=== PATIENT | female | born 1985 | race American Indian/Alaskan Native ===

== ENCOUNTER 2019-10-11 10:43 | Emergency (ER) | payer SELFPAY ==
--- NOTE | 2019-10-11 12:01 | Emergency Department Report ---
ED General Adult HPI - General Chief complaint: Chest Pain Stated complaint: CP Time Seen by Provider: 10/11/19 11:52 Source: patient Mode of arrival: Ambulatory Limitations: No Limitations - History of Present Illness Initial comments: 33-year-old obese relatively healthy to her knowledge -[place] female presents emergency department complaining of a 2 to 3-week history of episodes of chest pressure followed by tingling in her hands and anxiety. States her initial presentation was August 18 when she was having palpitations which progressed anxiety and reports having had heart rates up to 162 per her health watch. This lasted for about a minute or 2 before slowly resolving since that time she is been having progressively worsening bouts of chest pressure almost every day. No orthopnea does not appear to be reproducible. She reports no fever chills or sweats. No hemoptysis, no hematuria hematemesis, no sputum production, no coughing, no headache, no sore throat, no known contact with the coronavirus. 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 related with the job but reports no known history of anxiety, bipolar, schizophrenia or anxiety nor PTSD Location: chest Radiation: non-radiation Quality: other Consistency: intermittent Improves with: none (Pressure) Worsens with: none Associated Symptoms: denies: confusion, chest pain, cough, diaphoresis, fever/chills, nausea/vomiting, shortness of breath, syncope, weakness Treatments Prior to Arrival: none - Related Data Previous Rx's Medication Instructions Recorded Last Taken Type Famotidine [Pepcid] 10 mg PO BID #30 tablet 06/21/14 Unknown Rx Omeprazole [PriLOSEC] 20 mg PO QDAY #30 capsule. 06/21/14 Unknown Rx Allergies Allergy/AdvReac Type Severity Reaction Status Date / Time No Known Allergies Allergy Verified 06/21/14 04:56 ED Review of Systems ROS: Stated complaint: CP Other details as noted in HPI Comment: All other systems reviewed and negative ED Past Medical Hx - Past Medical History Previous Medical History?: No - Surgical History Past Surgical History?: Yes Additional Surgical History: tummy tuck - Social History Smoking Status: Never Smoker Substance Use Type: None - Medications Home Medications: Home Medications Medication Instructions Recorded Confirmed Last Taken Type Famotidine [Pepcid] 10 mg PO BID #30 tablet 06/21/14 Unknown Rx Omeprazole [PriLOSEC] 20 mg PO QDAY #30 capsule. 06/21/14 Unknown Rx ED Physical Exam - General Limitations: No Limitations General appearance: alert, in no apparent distress - Head Head exam: Present: atraumatic, normocephalic - Eye Eye exam: Present: normal appearance, PERRL, EOMI Pupils: Present: normal accommodation - ENT ENT exam: Present: normal exam, normal orophraynx, mucous membranes moist, TM's normal bilaterally - Neck Neck exam: Present: normal inspection, full ROM. Absent: tenderness, lymphadenopathy - Respiratory Respiratory exam: Present: normal lung sounds bilaterally. Absent: respiratory distress, wheezes, rales, rhonchi, chest wall tenderness, accessory muscle use, decreased breath sounds - Cardiovascular Cardiovascular Exam: Present: regular rate, normal rhythm. Absent: systolic murmur, diastolic murmur, rubs, gallop - GI/Abdominal GI/Abdominal exam: Present: soft, normal bowel sounds - Extremities Exam Extremities exam: Present: normal inspection, full ROM, normal capillary refill. Absent: pedal edema - Back Exam Back exam: Present: normal inspection. Absent: CVA tenderness (R), CVA tenderness (L), muscle spasm - Neurological Exam Neurological exam: Present: alert, oriented X3, CN II-XII intact, normal gait - Psychiatric Psychiatric exam: Present: normal affect, normal mood - Skin Skin exam: Present: warm, dry, intact, normal color. Absent: rash ED Course Vital Signs 10/11/19 10/11/19 10/11/19 10:52 11:58 14:52 Temperature 98.3 F 97.7 F Pulse Rate 90 75 Respiratory 18 15 16 Rate Blood Pressure 135/80 131/68 [Right] O2 Sat by Pulse 100 Oximetry ED Medical Decision Making - Lab Data Result diagrams: 10/11/19 12:05 10/11/19 12:05 - EKG Data EKG shows normal: sinus rhythm Rate: normal - EKG Data Interpretation: normal EKG - Radiology Data Radiology results: report reviewed Print Report Referring Physician:RAYSA ALVARADOPatient Name:PETR TRUJILLO PIERREPatient ID:[id number] of :[id number]:FemaleAccession:[id number] eport Date:[id number] Status:Finalized Findings [facility] [address] [place] [address] XRay Report Signed Patient: PETR SNOW MR#: [id number] : 1985 Acct:[id number] Age/Sex: 33 / F ADM Date: 10/11/19 Loc: ED Attending Dr: Ordering Physician: RAYSA ALVARADO Date of Service: 10/11/19 Procedure(s): XR chest routine 2V Accession Number(s): [id number] cc: RAYSA ALVARADO Fluoro Time In Minutes: CHEST 2 VIEWS INDICATION / CLINICAL INFORMATION: Shortness of breath. COMPARISON: None available. FINDINGS: SUPPORT DEVICES: None. HEART / MEDIASTINUM: No significant abnormality. LUNGS / PLEURA: No significant pulmonary or pleural abnormality. No pneumothorax. ADDITIONAL FINDINGS: No significant additional findings. IMPRESSION: 1. No acute findings. Signer Name: Yang Luo MD Signed: 10/11/2019 11:23 AM Workstation Name: [id number] Transcribed By: JOSE Dictated By: Yang Luo MD Electronically Authenticated By: Yang Luo MD Signed Date/Time: 10/11/19 112 DD/ 1123 TD/TT - Medical Decision Making this patient presents with chest pain that is very unlikely angina or acute co ronary syndrome. The emergency department evaluation has not identified any cause for suspicion that this chest pain has a cardiac etiology. Based on their history, EKG (which showed no evidence of ischemia or infarction) and imaging, in addition to the patient's physical exam, I see no evidence at this time for a malignant etiology for the patient's chest pain. There is no acute evidence for pulmonary embolus, acute myocardial infarction, pneumothorax, Boerhaeve syndrome, cardiac tamponade, thoracic artery dissection, or any other emergent cardiac, pulmonary or aortic pathology. Given the low pre-test probability for cardiac etiology of chest pain and the absence of any sign of ischemia or infarction, discharge for outpatient follow-up and further evaluation is reasonable. I have explained to the patient that even though a cardiac problem is very unlikely, follow-up and further testing is required to reduce further the already small uncertainty that exists. Other life-threatening diagnoses have been considered. The patient understands the need to return immediately if their symptoms worsen or they develop any new symptoms, and not to engage in any significant exertional activity until follow-up is obtained. Critical care attestation.: If time is entered above; I have spent that time in minutes in the direct care of this critically ill patient, excluding procedure time. ED Disposition Clinical Impression: Palpitations, Chest pain, Anxiety Disposition: - TO HOME OR SELFCARE Is pt being admited?: No Does the pt Need Aspirin: No Condition: Stable Instructions: Chest Pain (ED), Palpitations (ED), Anxiety (ED) Additional Instructions: Please be sure to hold all caffeinated beverages from your dietary plan as well as any decongestants or other stimulants. Referrals: PRIMARY CARE, [Primary Care Provider] - 3-5 Days JANET STAPLES MD [Staff Physician] - 2-3 Days (Please follow-up with this doctor for further evaluation of your palpitations as well as your likely anxiety at which point in time treatment may be initiated.) Forms: Work/School Release Form(ED)
[2019-10-11 13:30] LABS: Basophils # (Auto) 0.1 K/mm3 (0.0-0.1); Basophils % (Auto) 0.4 % (0.0-1.8); Eosinophils # (Auto) 0.4 K/mm3 (0.0-0.4); Eosinophils % (Auto) 2.6 % (0.0-4.3); Hematocrit 41.1 % (30.3-42.9); Hemoglobin 13.4 gm/dl (10.1-14.3); Lymphocytes # (Auto) 3.2 K/mm3 (1.2-5.4); Lymphocytes % (Auto) 22.2 % (13.4-35.0); Mean Corpuscular HGB Conc 33 % (30-34); Mean Corpuscular Volume 87 fl (79-97); Monocytes # (Auto) 0.8 K/mm3 (0.0-0.8); Monocytes % (Auto) 5.6 % (0.0-7.3); Platelet Count 265 K/mm3 (140-440); Red Blood Count 4.71 M/mm3 (3.65-5.03); Red Cell Distribution Width 13.7 % (13.2-15.2)
[2019-10-11 13:51] LABS: Alanine Aminotransferase 22 units/L (7-56); Albumin 4.4 g/dL (3.9-5); BUN/Creatinine Ratio 14; Blood Urea Nitrogen 10 mg/dL (7-17); Calcium 9.3 mg/dL (8.4-10.2); Hemolysis Index 25
[2019-10-11 14:54] VITALS: BP 131/68
== END 2019-10-11 14:55 | disposition home or self-care (01) ==
LOC: ED 10:43
DX: F41.9 Anxiety disorder, unspecified (principal); R07.89 Other chest pain; R00.2 Palpitations; Z98.890 Other specified postprocedural states; Z79.899 Other long term (current) drug therapy
CPT/HCPCS: 36415; 71046; 80053; 84443; 85025; 85379; 93005

== ENCOUNTER 2022-02-04 14:53 | Outpatient (CLI) | payer MEDICAID ==
[2022-02-04] MEDS ORDERED: LACTATED RINGERS 1,000 ML IV ONE (15:06)
[2022-02-04 15:59] LABS: Creatinine,Urine 299.8 mg/dL (0.1-20.0); Protein/Creatinine Ratio,Urine 0.18
[2022-02-04 16:01] LABS: Calcium Oxalate Crystals,Urine 1+; Mucus,Urine 3+ /HPF
[2022-02-04 16:08] LABS: Color,Urine Straw (Yellow)
--- NOTE | 2022-02-04 16:10 | Ultrasound Report ---
US OB BPP wo non-stress, US OB limited INDICATION / CLINICAL INFORMATION: well being. COMPARISON: None available. FINDINGS: Single live intrauterine . Clinical gestational age of 33 weeks and 0 days. BREATHING MOVEMENT = 2 GROSS BODY MOVEMENT = 2 TONE = 2 QUALITATIVE AMNIOTIC FLUID VOLUME = 2 TOTAL BIOPHYSICAL SCORE = 8/8 AMNIOTIC FLUID INDEX (cm) = 11.4 PRESENTATION: Cephalic. HEART RATE (beats per minute): 157 IMPRESSION: 1. Single live intrauterine . No significant abnormality. 2. biophysical profile = 12/29 3. Amniotic fluid index is within normal limits, measuring 11.4 cm. Signer Name: Dillan Vieyra MD Signed: 02/04/2022 4:06 PM Workstation Name: [id number]
[2022-02-04 16:39] LABS: Hematocrit 32.9 % (30.3-42.9); Hemoglobin 10.9 gm/dl (10.1-14.3); Mean Corpuscular HGB Conc 33 % (30-34); Mean Corpuscular Volume 89 fl (79-97); Platelet Count 178 K/mm3 (140-440); Red Blood Count 3.68 M/mm3 (3.65-5.03); Red Cell Distribution Width 13.6 % (13.2-15.2)
[2022-02-04 17:22] LABS: Alanine Aminotransferase 63 units/L (7-56); Uric Acid 3.6 mg/dL (3.5-7.6)
[2022-02-04 18:07] VITALS: BP 134/62
== END 2022-02-04 18:30 | disposition home or self-care (01) ==
LOC: TRG 14:53 → APU 14:55 → TRG 18:30
PROVIDERS: ATTEND Obstetrics & Gynecology
DX: O13.3 Gestational [pregnancy-induced] hypertension without significant proteinuria, third trimester (principal); Z3A.33 33 weeks gestation of pregnancy
CPT/HCPCS: 36415; 76815; 76819; 81001; 82565; 82570; 83615; 84156; 84450; 84460; 84550; 85027